=== PATIENT | female | born 1935 | race Caucasian/White ===

== ENCOUNTER → 2016-09-14 | Outpatient (CLI) | payer MEDICARE, OTHER ==
[2016-09-14 22:08] LABS: BUN 13 mg/dL (7-18)
[2016-09-14 22:11] LABS: GFR (ESTIMATED) 69 ML/MIN (59-)
== END ==
LOC: MAY-LAB 14:05
PROVIDERS: Internal Medicine
DX: E78.5 Hyperlipidemia, unspecified (principal)